=== PATIENT | female | born 1985 | race Caucasian/White ===

== ENCOUNTER 2018-08-21 20:42 | Emergency (ER) | payer OTHER ==
[2018-08-21] MEDS ORDERED: XYLOCAINE 1% HCL 20 ML MDV IJ ONE (21:10)
[2018-08-21] MEDS ORDERED: BACIGUENT PACKET TP ONE (21:10)
[2018-08-21] MEDS ORDERED: Adacel Vial IM ONE ×2 (21:10→21:20)
[2018-08-21] MEDS ORDERED: XYLOCAINE 1% HCL 20 ML MDV ONE (21:11)
--- NOTE | 2018-08-21 21:16 | ERPHSYRPT ---
- History of Present Illness Time Seen by Provider: 08/21/18 21:07 Source: patient Exam Limitations: no limitations Patient Subjective Stated Complaint: pt states while in the shower a glass broke and hit her ankle and cut her ankle Triage Nursing Assessment: pt alert and oriented. answers questions approp. respirations nonlabored with lungs cta. pt ambulatory with limping gait noted. laceration noted to lt medial ankle approx 2cm. no bleeding ntoed at this time Physician History: 32-year-old white female previously healthy arrives with complaint of a laceration to her left medial ankle symptoms since just prior to arrival. According to patient her son was going to throw water on her in the shower when the glass slipped broken lacerated her left ankle. She has an approximately 2 cm laceration to the left medial ankle. She has a no other complaints. She has full range of motion to her left lower extremity good capillary to fill to the toes sensation intact to her toes Past medical history is negative. Past surgical history is negative. Social history is negative. Method of Injury: incised Occurred: just prior to arrival Quality: sharpness Severity of Pain-Max: mild Severity of Pain-Current: mild Lower Extremities Pain: ankle: left Modifying Factors: Improves With: nothing Associated Symptoms: none Allergies/Adverse Reactions: No Known Drug Allergies Allergy (Verified 08/21/18 21:04) Home Medications: No Reportable Medications [No Reported Medications] 08/21/18 [History] Hx Tetanus, Diphtheria Vaccination/Date Given: No (unknown) Hx Influenza Vaccination/Date Given: No Hx Pneumococcal Vaccination/Date Given: No Immunizations Up to Date: Yes - Review of Systems Constitutional: No Fever, No Chills Eyes: No Symptoms Ears, Nose, & Throat: No Symptoms Respiratory: No Cough, No Dyspnea Cardiac: No Chest Pain, No Edema, No Syncope Abdominal/Gastrointestinal: No Abdominal Pain, No Nausea, No Vomiting, No Diarrhea Genitourinary Symptoms: No Dysuria Musculoskeletal: No Back Pain, No Neck Pain Skin: Other (2 cm laceration left medial ankle) Neurological: No Dizziness, No Focal Weakness, No Sensory Changes Psychological: No Symptoms Endocrine: No Symptoms All Other Systems: Reviewed and Negative - Past Medical History Pertinent Past Medical History: No - Past Surgical History Past Surgical History: No - Social History Smoking Status: Never smoker Exposure to second hand smoke: No Drug Use: none Patient Lives Alone: No - Female History Hx Last Menstrual Period: last month Hx Now: No - Nursing Vital Signs Nursing Vital Signs: Initial Vital Signs Pulse Rate 75 08/21/18 20:49 Respiratory Rate 18 08/21/18 20:49 Blood Pressure 147/82 08/21/18 20:49 O2 Sat by Pulse Oximetry 100 08/21/18 20:49 Pain Scale Pain Intensity 0 - Physical Exam General Appearance: alert Eyes, Ears, Nose, Throat Exam: moist mucous membranes Neck Exam: non-tender, supple Cardiovascular/Respiratory Exam: chest non-tender, normal breath sounds, regular rate/rhythm, no respiratory distress Gastrointestinal/Abdominal Exam: non-tender, guarding Back Exam: normal inspection, No vertebral tenderness Hips Exam: bilateral: non-tender, normal inspection, normal range of motion, no evidence of injury Legs Exam: bilateral leg: non-tender, normal inspection, normal range of motion , no evidence of injury Knees Exam: bilateral knee: non-tender, normal inspection, normal range of motion, no evidence of injury Ankle Exam: right ankle: normal inspection, no evidence of injury, left ankle: abrasions/laceration (2 cm laceration left medial ankle), bilateral ankle: non- tender Foot Exam: bilateral foot: non-tender, normal inspection, normal range of motion , no evidence of injury, abrasions/lacerations DTR - Lower Extremities Exam: ankle (R): 2+, ankle (L): 2+ Neuro/Tendon Exam: normal sensation, normal motor functions, normal tendon functions, no evidence tendon injury, No motor deficit Mental Status Exam: alert, oriented x 3, cooperative Skin Exam: normal color, warm, dry, other (2 cm laceration left medial ankle), No rash, No petechiae, No jaundice SpO2 Interpretation: normal (100%) SpO2: 100 Oxygen Delivery: Room Air - Course Nursing assessment & vital signs reviewed: Yes Ordered Tests: Active Orders 24 hr Category Date Time Status Prepare for Sutures STAT Care 08/21/18 21:10 Active Sutures STAT Care 08/21/18 21:11 Active Wound Care STAT Care 08/21/18 21:10 Active Medication Summary Discontinued Medications Generic Name Dose Route Start Last Admin Trade Name Freq PRN Reason Stop Dose Admin Bacitracin Zinc 0.9 gm 08/21/18 21:10 Baciguent Packet TP 08/21/18 21:11 STAT ONE Bacitracin Zinc Confirm 08/21/18 21:17 Baciguent Packet Administered 08/21/18 21:18 Dose 1 gm .ROUTE .STK-MED ONE Diphtheria/Tetanus/Acell Pertussis 0.5 ml 08/21/18 21:10 Adacel Vial IM 08/21/18 21:11 .ONCE ONE Diphtheria/Tetanus/Acell Pertussis Confirm 08/21/18 21:20 Adacel Vial Administered 08/21/18 21:21 Dose 0.5 ml IM .STK-MED ONE Lidocaine HCl 5 ml 08/21/18 21:10 Xylocaine 1% Hcl 20 Ml Mdv IJ 08/21/18 21:11 STAT ONE Lidocaine HCl Confirm 08/21/18 21:11 Xylocaine 1% Hcl 20 Ml Mdv Administered 08/21/18 21:12 Dose 5 ml .ROUTE .STK-MED ONE - Progress Progress: improved Progress Note: 08/21/18 21:39 Laceration repair 2 cm laceration left medial ankle. Laceration sterilely prepped and draped. Laceration is active no foreign bodies noted. Laceration anesthetized with 1% lidocaine. Laceration sutured using 3 5-0 Ethilon sutures. Bacitracin and dressing applied by patient's nurse. Patient's DTaP was updated. - Departure Time of Disposition: 21:39 Departure Disposition: Home Clinical Impression: Laceration of ankle Qualifiers: Encounter type: initial encounter Laterality: left Qualified Code(s): S91.012A - Laceration without foreign body, left ankle, initial encounter Condition: Fair Critical Care Time: No Referrals: BALTA DAMIAN [Primary Care Provider] - Instructions: Laceration Repair With Esteban (DC) Additional Instructions: Return home. Bacitracin to area until healed. Keep area clean and dry. Sutures out in 5-7 days. Follow-up with your family doctor or return if signs of infection or problems. Return for acute distress or for severe symptoms.
[2018-08-21] MEDS ORDERED: BACIGUENT PACKET ONE (21:17)
[2018-08-21 22:06] VITALS: BP 118/74; PULSE 70; O2SAT 99
== END 2018-08-21 22:05 | disposition home or self-care (01) ==
LOC: ED 20:42
DX: S91.012A Laceration without foreign body, left ankle, initial encounter (principal); W25.XXXA Contact with sharp glass, initial encounter; Y93.E1 Activity, personal bathing and showering; Y92.002 Bathroom of unspecified non-institutional (private) residence as the place of occurrence of the external cause
CPT/HCPCS: 12001; 90471; 90715; 96372; 99284; A9270-GY

== ENCOUNTER 2022-11-08 07:31 | Emergency (ER) | payer MEDICAID ==
[2022-11-08] MEDS ORDERED: Sodium Chloride 0.9% 1000 ML 1,000 ML IV STA (07:50)
[2022-11-08] MEDS ORDERED: Sodium Chloride 0.9% 1000 ML 1,000 ML ONE (07:56)
--- NOTE | 2022-11-08 08:17 | ERPHSYRPT ---
- History of Present Illness Time Seen by Provider: 11/08/22 07:45 Historian: patient Exam Limitations: no limitations Patient Subjective Stated Complaint: C/O left hip and flank pain for over a week, almost 2 weeks. Patient also c/o new fever and chills that started yeste rday. 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 has been ill at home with congestion and runny nose. Her child just got over strep throat. Triage Nursing Assessment: Patient ambulated back to ER without difficulties. No SOB. She is alert and oriented. COONEY WNL. No skin alterations noted to areas of pain. No cough. Skin is hot to touch. No pain with abdominal palpation. Physician History: Patient is a 36-year-old white female who presents with flank pain which started on the left side 2 weeks ago. The pain grew much worse yesterday. She does have left CVA tenderness she denies any urinary tract infection symptoms and she denies any history of renal stones. She does have a history of occasional UTIs. She also had exposure to strep a from her daughter and a COVID-like illness from her significant other. Timing/Duration: week(s) (2), worse (Since yesterday) Abdominal Pain Onset Location: flank (Left) Pain Radiation: LLQ Severity of Pain-Max: mild (2 of 10) Modifying Factors: Improves With: analgesics (OTC nonsteroidals) Previous symptoms: no prior history Allergies/Adverse Reactions: No Known Drug Allergies Allergy (Verified 11/08/22 07:39) Hx Tetanus, Diphtheria Vaccination/Date Given: Yes Hx Influenza Vaccination/Date Given: No Hx Pneumococcal Vaccination/Date Given: No Immunizations Up to Date: Yes Travel Risk - International Travel Have you traveled outside of the country in past 3 weeks: No - Coronavirus Screening Are you exhibiting any of the following symptoms?: Yes Symptoms: Fever, Headaches/Body Aches/Fatigue Close contact with a COVID-19 positive Pt in past 14-21 Days: No - Vaccine Status Have you recieved a Covid-19 vaccination: No - Review of Systems Constitutional: Fever, Chills Eyes: No Symptoms Ears, Nose, & Throat: No Symptoms Respiratory: No Cough, No Dyspnea Cardiac: No Chest Pain, No Edema, No Syncope Abdominal/Gastrointestinal: Abdominal Pain Genitourinary Symptoms: Flank Pain Musculoskeletal: No Symptoms Skin: No Symptoms Neurological: No Symptoms Psychological: No Symptoms Endocrine: No Symptoms Hematologic/Lymphatic: No Symptoms All Other Systems: Reviewed and Negative - Past Medical History Pertinent Past Medical History: No - Past Surgical History Past Surgical History: No - Social History Smoking Status: Never smoker Exposure to second hand smoke: No Drug Use: none Patient Lives Alone: No - Female History Hx Last Menstrual Period: October 2022 Hx Now: No (Is able to have children still) - Nursing Vital Signs Nursing Vital Signs: Initial Vital Signs Temperature 100.8 F 11/08/22 07:40 Pulse Rate 122 H 11/08/22 07:40 Respiratory Rate 17 11/08/22 07:40 Blood Pressure 130/85 11/08/22 07:40 O2 Sat by Pulse Oximetry 97 11/08/22 07:40 Pain Scale Pain Intensity 2 - Physical Exam General Appearance: mild distress Eye Exam: PERRL/EOMI, eyes nml inspection Ears, Nose, Throat Exam: normal ENT inspection, pharynx normal, moist mucous membranes Neck Exam: normal inspection Respiratory Exam: normal breath sounds, lungs clear, No respiratory distress Cardiovascular Exam: regular rate/rhythm, normal heart sounds Rectal Exam: deferred Back Exam: CVA tenderness (Left CVA tenderness) Extremity Exam: normal inspection, normal range of motion, pelvis stable Neurologic Exam: alert, oriented x 3, cooperative, normal mood/affect, nml cerebellar function, sensation nml, No motor deficits SpO2: 97 - Course Nursing assessment & vital signs reviewed: Yes - Radiology Exams Chest X-ray Interpretation: Reviewed by me - CT Exams Abdomen/Pelvis CT Interpretation: Other (Only positive findings is of some small nodules in bilateral lung bases patient was instructed to follow-up with her PCP in 3 to 6 months.) Ordered Tests: Active Orders 24 hr Category Date Time Status IV Insertion STAT Care 11/08/22 07:50 Active ABDOMEN AND PELVIS W/0 CONTRAS [CT] Stat Exams 11/08/22 07:51 Completed CHEST 1 VIEW (PORTABLE) Stat Exams 11/08/22 07:51 Completed AMYLASE Stat Lab 11/08/22 08:22 Completed CBC W DIFF Stat Lab 11/08/22 08:22 Completed CMP Stat Lab 11/08/22 08:22 Completed HCG,QUALITATIVE URINE Stat Lab 11/08/22 08:15 Completed LIPASE Stat Lab 11/08/22 08:22 Completed Lactic Acid Stat Lab 11/08/22 07:50 Completed UA W/RFX UR CULTURE Stat Lab 11/08/22 08:15 Completed Medication Summary Discontinued Medications Generic Name Dose Route Start Last Admin Trade Name Karie PRN Reason Stop Dose Admin Sodium Chloride 1,000 mls @ 999 mls/hr 11/08/22 07:50 11/08/22 09:04 Sodium Chloride 0.9% 1000 Ml IV 11/08/22 08:50 Infused .Q1H1M STA Infusion Sodium Chloride Confirm 11/08/22 07:56 Sodium Chloride 0.9% 1000 Ml Administered 11/08/22 07:57 Dose 1,000 mls @ ud .ROUTE .STK-MED ONE Lab/Rad Data: Laboratory Result Diagrams 11/08/22 08:22 11/08/22 08:22 Laboratory Results 11/08/22 11/08/22 11/08/22 Range/Units Unknown 08:22 08:22 WBC 13.2 H (4.0-10.5) x10^3/uL RBC 4.32 (4.1-5.4) x10^6/uL Hgb 12.4 (12.0-16.0) g/dL Hct 37.7 (35-47) % MCV 87.3 (78-100) fL MCH 28.7 (26-32) pg MCHC 32.9 (32-36) g/dL RDW 13.4 (11.5-14.0) % Plt Count 367 (150-450) x10^3/uL MPV 10.0 (7.5-11.0) fL Gran % 88.8 H (36.0-66.0) % Immature Gran % (Auto) 0.4 (0.00-0.4) % Nucleat RBC Rel Count 0.0 (0.00-0.1) % Eos # (Auto) 0.03 (0-0.5) x10^3/uL Immature Gran # (Auto) 0.05 H (0.00-0.03) x10^3u/L Absolute Lymphs (auto) 0.63 L (1.0-4.6) x10^3/uL Absolute Monos (auto) 0.74 (0.0-1.3) x10^3/uL Absolute Nucleated RBC 0.00 (0.00-0.01) x10^3u/L Lymphocytes % 4.8 L (24.0-44.0) % Monocytes % 5.6 (0.0-12.0) % Eosinophils % 0.2 (0.00-5.0) % Basophils % 0.2 (0.0-0.4) % Absolute Granulocytes 11.73 H (1.4-6.9) x10^3/uL Basophils # 0.03 (0-0.4) x10^3/uL Sodium 136 L (137-145) mmol/L Potassium 3.9 (3.5-5.1) mmol/L Chloride 104 (98-107) mmol/L Carbon Dioxide 24 (22-30) mmol/L Anion Gap 11.7 (5-15) MEQ/L BUN 7 (7-17) mg/dL Creatinine 0.63 (0.52-1.04) mg/dL Estimated GFR > 60.0 ML/MIN Glucose 131 H (74-106) mg/dL Lactic Acid (0.4-2.0) Calcium 8.8 (8.4-10.2) mg/dL Total Bilirubin 0.60 (0.2-1.3) mg/dL AST 23 (14-36) U/L ALT 18 (0-35) U/L Alkaline Phosphatase 82 (38-126) U/L Serum Total Protein 8.3 H (6.3-8.2) g/dL Albumin 4.3 (3.5-5.0) g/dL Amylase 77 (30-110) U/L Lipase 52 (23-300) U/L Urine Color (Yellow) Urine Appearance (Clear) Urine pH (4.6-8.0) Ur Specific [place] (1.005-1.030) Urine Protein (Negative) Urine Glucose (UA) (Negative) mg/dL Urine Ketones (Negative) Urine Blood (Negative) Urine Nitrite (Negative) Urine Bilirubin (Negative) Urine Urobilinogen (0.2) mg/dL Ur Leukocyte Esterase (Negative) U Hyaline Cast (Auto) (0-2) /LPF Urine Microscopic RBC (0-5) /HPF Urine Microscopic WBC (0-5) /HPF Ur Epithelial Cells (None Seen) /HPF Urine Bacteria (None Seen) /HPF Urine Culture Reflexed (NO) Urine HCG, Qual (Negative) Influenza Type A Ag NEGATIVE (NEGATIVE) Influenza Type B Ag NEGATIVE (NEGATIVE) RSV (PCR) NEGATIVE (Negative) SARS-CoV-2 (PCR) NEGATIVE (NEGATIVE) Group A Strep Antibody DETECTED (NEGATIVE) 11/08/22 11/08/22 11/08/22 Range/Units 08:15 08:15 07:50 WBC (4.0-10.5) x10^3/uL RBC (4.1-5.4) x10^6/uL Hgb (12.0-16.0) g/dL Hct (35-47) % MCV (78-100) fL MCH (26-32) pg MCHC (32-36) g/dL RDW (11.5-14.0) % Plt Count (150-450) x10^3/uL MPV (7.5-11.0) fL Gran % (36.0-66.0) % Immature Gran % (Auto) (0.00-0.4) % Nucleat RBC Rel Count (0.00-0.1) % Eos # (Auto) (0-0.5) x10^3/uL Immature Gran # (Auto) (0.00-0.03) x10^3u/L Absolute Lymphs (auto) (1.0-4.6) x10^3/uL Absolute Monos (auto) (0.0-1.3) x10^3/uL Absolute Nucleated RBC (0.00-0.01) x10^3u/L Lymphocytes % (24.0-44.0) % Monocytes % (0.0-12.0) % Eosinophils % (0.00-5.0) % Basophils % (0.0-0.4) % Absolute Granulocytes (1.4-6.9) x10^3/uL Basophils # (0-0.4) x10^3/uL Sodium (137-145) mmol/L Potassium (3.5-5.1) mmol/L Chloride (98-107) mmol/L Carbon Dioxide (22-30) mmol/L Anion Gap (5-15) MEQ/L BUN (7-17) mg/dL Creatinine (0.52-1.04) mg/dL Estimated GFR ML/MIN Glucose (74-106) mg/dL Lactic Acid 1.1 (0.4-2.0) Calcium (8.4-10.2) mg/dL Total Bilirubin (0.2-1.3) mg/dL AST (14-36) U/L ALT (0-35) U/L Alkaline Phosphatase (38-126) U/L Serum Total Protein (6.3-8.2) g/dL Albumin (3.5-5.0) g/dL Amylase (30-110) U/L Lipase (23-300) U/L Urine Color Yellow (Yellow) Urine Appearance Clear (Clear) Urine pH 7.5 (4.6-8.0) Ur Specific [place] 1.020 (1.005-1.030) Urine Protein 30 (Negative) Urine Glucose (UA) Negative (Negative) mg/dL Urine Ketones Negative (Negative) Urine Blood Negative (Negative) Urine Nitrite Negative (Negative) Urine Bilirubin Negative (Negative) Urine Urobilinogen 1.0 A (0.2) mg/dL Ur Leukocyte Esterase Negative (Negative) U Hyaline Cast (Auto) NONE SEEN (0-2) /LPF Urine Microscopic RBC 3-5 (0-5) /HPF Urine Microscopic WBC 0-2 (0-5) /HPF Ur Epithelial Cells Rare (None Seen) /HPF Urine Bacteria None Seen (None Seen) /HPF Urine Culture Reflexed NO (NO) Urine HCG, Qual NEGATIVE (Negative) Influenza Type A Ag (NEGATIVE) Influenza Type B Ag (NEGATIVE) RSV (PCR) (Negative) SARS-CoV-2 (PCR) (NEGATIVE) Group A Strep Antibody (NEGATIVE) - Progress Progress: unchanged - Departure Departure Disposition: Home Clinical Impression: Streptococcal infection, Pulmonary nodules Condition: Stable Critical Care Time: No Referrals: DOCTOR,NO FAMILY [Primary Care Provider] - Follow up/PCP as directed Instructions: Flank Pain, Sore Throat, Adult (DC) Forms: Work/School Release Form Prescriptions: Cephalexin Mh 500 mg [Keflex 500 mg] 500 mg PO QID #40 cap
[2022-11-08 08:22] LABS: Absolute Neutrophil Ct (ANC) 11.73 x10^3/uL (1.4-6.9); BASOPHIL % 0.2 % (0.0-0.4); Basophil (Absolute #) 0.03 x10^3/uL (0-0.4); Eosinophil % 0.2 % (0.00-5.0); Eosinophil (Absolute #) 0.03 x10^3/uL (0-0.5); Hematocrit 37.7 % (35-47); Hemoglobin 12.4 g/dL (12.0-16.0); IMMATURE GRAN # 0.05 x10^3u/L (0.00-0.03); IMMATURE GRAN % 0.4 % (0.00-0.4); Lymphocyte (Absolute #) 0.63 x10^3/uL (1.0-4.6); Lymphocytes % 4.8 % (24.0-44.0); Mean Cell Volume 87.3 fL (78-100); Mean Corpuscular Hemoglobin 28.7 pg (26-32); Mean Corpuscular Hgb Concent. 32.9 g/dL (32-36); Monocyte (Absolute #) 0.74 x10^3/uL (0.0-1.3); Monocytes % 5.6 % (0.0-12.0); Neutrophil % 88.8 % (36.0-66.0); Platelet Count 367 x10^3/uL (150-450); Red Blood Count 4.32 x10^6/uL (4.1-5.4); Red Cell Distribution Width 13.4 % (11.5-14.0); White Blood Count 13.2 x10^3/uL (4.0-10.5)
[2022-11-08 08:23] LABS: Appearance Clear (Clear); Bilirubin Negative (Negative); Blood Negative (Negative); Glucose, Urine Negative (Negative); Ketones Negative (Negative); Leukocyte Esterase Negative (Negative); Nitrite Negative (Negative); Ph 7.5 (4.6-8.0); Protein,Urine Dip 30 (Negative)
[2022-11-08 08:28] LABS: Bacteria None Seen /HPF (None Seen); Epithelial Cells Rare /HPF (None Seen); Hyaline Casts NONE SEEN /LPF (0-2); WBC 0-2 /HPF (0-5)
[2022-11-08 08:32] LABS: ALBUMIN 4.3 g/dL (3.5-5.0); ALKALINE PHOSPHATASE 82 U/L (38-126); AMYLASE 77 U/L (30-110); ANION GAP 11.7 MEQ/L (5-15); BLOOD UREA NITROGEN 7 mg/dL (7-17); CHLORIDE 104 mmol/L (98-107); Calcium 8.8 mg/dL (8.4-10.2); Carbon Dioxide 24 mmol/L (22-30); Creatinine 1 0.63 mg/dL (0.52-1.04); EST GLOMERULAR FILTRATION RATE > 60.0 ML/MIN; Glucose 131 mg/dL (74-106); LIPASE 52 U/L (23-300); Potassium 3.9 mmol/L (3.5-5.1); SGOT/AST 23 U/L (14-36); SGPT/ALT 18 U/L (0-35); SODIUM 136 mmol/L (137-145); Total Protein 8.3 g/dL (6.3-8.2)
[2022-11-08 08:35] LABS: ADD URINE CULTURE? NO (NO)
[2022-11-08 08:50] LABS: Group A Strep DETECTED (NEGATIVE)
--- NOTE | 2022-11-08 09:08 | XRAY ---
Indication: Chest pain and fever. Comparison: None Portable chest demonstrates normal heart and lungs. Bony thorax intact.
[2022-11-08 09:09] LABS: INFLUENZA A NEGATIVE (NEGATIVE); INFLUENZA B NEGATIVE (NEGATIVE); RESPIRATORY SYNCTIAL VIRUS NEGATIVE (Negative); SARS-CoV-2 Xpert Express NEGATIVE (NEGATIVE)
--- NOTE | 2022-11-08 09:12 | XRAY ---
Indication: Right flank pain. Multiple contiguous axial images obtained through the abdomen and pelvis without contrast. Comparison: None Lung bases demonstrates indeterminant 8 mm right base and 7 mm left base noncalcified nodules. Heart not enlarged. Noncontrasted stomach and bowel loops appear nonobstructed with normal appendix. Minimal scattered descending colonic diverticulosis without diverticulitis. No free fluid/air. Remaining liver, gallbladder, pancreas, spleen, adrenal glands, kidneys, ureters, bladder, uterus, and aorta are unremarkable for noncontrast exam. Osseous structures intact with mild lower lumbar degenerative changes and minimal dexterous scoliosis centered at thoracolumbar junction. Small fatty umbilical hernia. No other ventral or inguinal hernias. Impression: 1. Indeterminate centimeters bibasilar pulmonary nodules. Outside comparison studies recommended if available. If not, consider baseline CT with follow-up per Fleischner guidelines. 2. Colonic diverticulosis, chronic bony findings, and small fatty umbilical hernia. 3. Remaining CT abdomen/pelvis without contrast exam is negative.
[2022-11-08 10:45] VITALS: BP 119/76; PULSE 100; O2SAT 99
== END 2022-11-08 11:11 | disposition home or self-care (01) ==
LOC: ED 07:31
DX: A49.1 Streptococcal infection, unspecified site (principal); R91.8 Other nonspecific abnormal finding of lung field; R10.9 Unspecified abdominal pain; Z20.828 Contact with and (suspected) exposure to other viral communicable diseases; Z28.310 Unvaccinated for COVID-19
CPT/HCPCS: 0241U; 36000; 36415; 71045; 74176; 80053; 81001; 81025; 82150; 83605; 83690; 85025; 87651; 99284